=== PATIENT | male | born 1930 | race Two or more races ===

== ENCOUNTER 2017-03-30 05:31 | Inpatient (IN) | payer MEDICARE, MEDICAID ==
[~2017-03-30] VITALS: Ht 167.6 cm; Wt 82.4 kg
[2017-03-30] MEDS ORDERED: ASPirin 325 MG TAB PO ONE (07:30)
[2017-03-30] MEDS ORDERED: LORazepam 0.5 MG TAB PO ONE (07:30)
[2017-03-30] MEDS ORDERED: FUR20T (08:00)
[2017-03-30] MEDS ORDERED: AMLO10TA2 (08:00)
[2017-03-30] MEDS ORDERED: LEVO50TA7 (08:00)
[2017-03-30] MEDS ORDERED: SPIR25TA89 (08:00)
[2017-03-30] MEDS ORDERED: ASPI81CH59 PO (08:00)
[2017-03-30] MEDS ORDERED: ATOR40TA52 (08:00)
[2017-03-30] MEDS ORDERED: BENA20TA14 (08:00)
[2017-03-30] MEDS ORDERED: GLIP-115 (08:00)
[2017-03-30] MEDS ORDERED: TICA90TA (08:00)
[2017-03-30] MEDS ORDERED: PANT40T (08:00)
[2017-03-30 08:16] LABS: Basophils # (auto) 0 uL; Basophils % (auto) 0.2 % (0.0-2.0); Eosinophils # (auto) 0.1 uL; Eosinophils % (auto) 0.6 % (0.0-7.0); Hematocrit 27.2 % (41.0-53.0); Hemoglobin 9.1 g/dL (13.5-17.5); Lymphocytes # (auto) 0.6 uL; Lymphocytes % (auto) 4.6 % (10.0-50.0); Mean Corpuscular Hemoglobin 29.3 pg (28.0-32.0); Mean Corpuscular Hgb Conc. 33.5 g/dL (32.0-36.0); Mean Corpuscular Volume 87.3 fL (80.0-100.0); Monocytes # (auto) 0.5 uL; Monocytes % (auto) 3.9 % (0.0-12.0); Neutrophils # (auto) 11.6 uL; Neutrophils % (auto) 90.7 % (37.0-80.0); Platelet Count (auto) 230 10^3/uL (140-450); Red Blood Cells 3.12 10^6/uL (4.5-5.90); Red Cell Distribution Width 16.2 % (11.8-14.3); White Blood Cell 12.8 10^3/uL (4.4-10.8)
[2017-03-30 08:27] LABS: INR 1.14 (0.9-1.15); Partial Thromboplastin Time 28.6 sec (22.64-33.71); Prothrombin Time 12.4 sec (9.37-12.3)
[2017-03-30 08:34] LABS: BUN/Creatinine Ratio 25.4; Magnesium 2.1 mg/dL (1.6-2.6); Potassium 3.6 mmol/L (3.5-5.1)
[2017-03-30 08:48] LABS: Bilirubin, Total 4.1 mg/dL (0.2-1.0); Total Protein 6.6 g/dL (6.4-8.2)
[2017-03-30] MEDS ORDERED: ENOXAPARIN SOD 80 MG/0.8ML SYRINGE SC ONE (09:15)
[2017-03-30] MEDS ORDERED: FUROSEMIDE 20 MG/2 ML VIAL IV ONE (09:15)
[2017-03-30] MEDS ORDERED: PROMETHAZINE HCL 25 MG/ML 1ML IV PRN (09:30)
[2017-03-30] MEDS ORDERED: MORPHINE SULFATE 4 MG/ML SYR/VIAL IV PRN (09:30)
[2017-03-30] MEDS ORDERED: MORPHINE SULF INJ 2 MG/ML SYRINGE 1ML IV PRN ×2 (09:30)
[2017-03-30] MEDS ORDERED: OSELTAMIVIR 75 MG CAP PO ONE (09:30)
[2017-03-30] MEDS ORDERED: LORazepam 0.5 MG TAB PO PRN (09:30)
[2017-03-30] MEDS ORDERED: PIPERACILLIN-TAZOB 3.375GM 50 ML IV ONE (09:30)
[2017-03-30] MEDS: OSELTAMIVIR 30 MG CAP PO SCH ×2 (10:00→21:57)
[2017-03-30] MEDS ORDERED: PATIENTS OWN MEDICATION (Aspirin (Aspirin Low Dose) 1 TAB) PO SCH (10:00)
[2017-03-30] MEDS ORDERED: OSELTAMIVIR 75 MG CAP PO SCH (10:00)
[2017-03-30] MEDS: TICAGRELOR 90 MG TAB PO SCH ×2 (10:00→21:56)
[2017-03-30 10:25] VITALS: BP 154/70
[2017-03-30] MEDS: IPRATROPIUM BROM 0.5 MG/2.5ML INH SOL NEB SCH ×2 (11:11→19:12)
[2017-03-30] MEDS: ALBUTEROL SULF 2.5 MG/0.5ML(0.5%) NEB SOLN NEB SCH ×2 (11:11→19:12)
[2017-03-30] MEDS: ENOXAPARIN SOD 40 MG/0.4 ML SYRINGE SC SCH (11:28)
[2017-03-30] MEDS: POTASSIUM CHL 20 Meq TABLET PO SCH (11:29)
[2017-03-30] MEDS: ASPirin 81 mg TAB PO SCH (11:29)
[2017-03-30] MEDS: SPIRONOLACTONE 25 MG TAB PO SCH (11:29)
[2017-03-30] MEDS: FUROSEMIDE 40 MG/4 ML VIAL IV SCH ×2 (11:29→21:55)
[2017-03-30] MEDS: PANTOPRAZOLE 40 MG TAB PO SCH ×2 (11:29→21:55)
[2017-03-30] MEDS: LEVOTHYROXINE SODIUM 50 MCG TAB PO SCH (11:29)
[2017-03-30] MEDS: CARVEDILOL 3.125 MG TAB PO SCH ×2 (11:30→21:56)
[2017-03-30] MEDS: amLODIPine BESYLATE 5 MG TAB PO SCH (11:30)
[2017-03-30] MEDS: InsuLIN REG 1unit/0.01ml Soln (100units/ml) SC SCH ×3 (11:30→22:00)
[2017-03-30] MEDS: BENAZEPRIL HCL 10 MG TAB PO SCH ×3 (11:31→22:00)
[2017-03-30] MEDS: LINEZOLID 600MG/300ML 300 ML IV SCH ×2 (11:33→21:54)
[2017-03-30] MEDS: ACCU-CHEK COMFORT CURVE STRIP VI SCH ×3 (11:39→21:57)
[2017-03-30] MEDS: glipiZIDE 5 MG TAB PO SCH ×2 (11:39→22:16)
[2017-03-30] MEDS ORDERED: INFLUENZA QUAD 2017-2018 0.5 ML SYRG IM ONE (12:00)
[2017-03-30] MEDS: PIPERACILLIN-TAZOB 3.375GM 50 ML IV SCH ×2 (12:00→18:24)
[2017-03-30] MEDS: NITROGLYCERIN 0.2MG/HR TOPICAL PATCH TD SCH (12:37)
[2017-03-30 13:00] VITALS: BP 154/70
[2017-03-30 13:37] VITALS: BP 122/57
[2017-03-30] MEDS: AZITHROMYCIN 500MG/ 250ML 250 ML IV SCH (13:37)
[2017-03-30 15:33] VITALS: BP 122/57
[2017-03-30 17:00] VITALS: BP 119/49
[2017-03-30 22:00] VITALS: BP 122/58
[2017-03-31] MEDS: ALBUTEROL SULF 2.5 MG/0.5ML(0.5%) NEB SOLN NEB SCH ×4 (00:19→19:54)
[2017-03-31] MEDS: IPRATROPIUM BROM 0.5 MG/2.5ML INH SOL NEB SCH ×4 (00:19→19:54)
[2017-03-31] MEDS: PIPERACILLIN-TAZOB 3.375GM 50 ML IV SCH ×4 (00:39→18:00)
[2017-03-31 05:24] VITALS: BP 120/60
[2017-03-31 06:17] LABS: Basophils # (auto) 0 uL; Hematocrit 22.8 % (41.0-53.0); Lymphocytes # (auto) 0.5 uL; Monocytes # (auto) 0.5 uL; Platelet Count (auto) 184 10^3/uL (140-450); Red Blood Cells 2.62 10^6/uL (4.5-5.90); White Blood Cell 9.5 10^3/uL (4.4-10.8)
[2017-03-31 06:19] LABS: Basophils % (auto) 0.2 % (0.0-2.0); Eosinophils # (auto) 0.1 uL; Eosinophils % (auto) 1.5 % (0.0-7.0); Mean Corpuscular Hemoglobin 30.3 pg (28.0-32.0); Mean Corpuscular Hgb Conc. 34.9 g/dL (32.0-36.0); Mean Corpuscular Volume 86.9 fL (80.0-100.0); Monocytes % (auto) 5.4 % (0.0-12.0); Neutrophils # (auto) 8.4 uL; Neutrophils % (auto) 87.9 % (37.0-80.0); Red Cell Distribution Width 15.9 % (11.8-14.3)
[2017-03-31 06:42] LABS: Albumin 1.7 g/dL (3.4-5.0); BUN/Creatinine Ratio 22.9; Bilirubin, Total 5.2 mg/dL (0.2-1.0); Calcium 7.5 mg/dL (8.5-10.1); Total Protein 5.5 g/dL (6.4-8.2)
[2017-03-31] MEDS: ACCU-CHEK COMFORT CURVE STRIP VI SCH ×4 (06:54→22:02)
[2017-03-31] MEDS: InsuLIN REG 1unit/0.01ml Soln (100units/ml) SC SCH ×4 (06:54→22:13)
[2017-03-31 08:00] VITALS: BP 109/51
[2017-03-31 09:49] VITALS: BP 109/51
[2017-03-31] MEDS: OSELTAMIVIR 30 MG CAP PO SCH ×2 (10:00→22:00)
[2017-03-31] MEDS: NITROGLYCERIN 0.2MG/HR TOPICAL PATCH TD SCH (10:00)
[2017-03-31] MEDS: AZITHROMYCIN 500MG/ 250ML 250 ML IV SCH (10:43)
[2017-03-31] MEDS: FUROSEMIDE 40 MG/4 ML VIAL IV SCH ×2 (10:43→21:59)
[2017-03-31] MEDS: LINEZOLID 600MG/300ML 300 ML IV SCH ×2 (10:43→21:59)
[2017-03-31] MEDS: POTASSIUM CHL 20 Meq TABLET PO SCH ×2 (10:44→18:21)
[2017-03-31] MEDS: ASPirin 81 mg TAB PO SCH ×2 (10:44→18:21)
[2017-03-31] MEDS: PANTOPRAZOLE 40 MG TAB PO SCH ×2 (10:45→22:01)
[2017-03-31] MEDS: BENAZEPRIL HCL 10 MG TAB PO SCH ×2 (10:45→22:01)
[2017-03-31] MEDS: ENOXAPARIN SOD 40 MG/0.4 ML SYRINGE SC SCH (10:46)
[2017-03-31] MEDS: LEVOTHYROXINE SODIUM 50 MCG TAB PO SCH (10:46)
[2017-03-31] MEDS: TICAGRELOR 90 MG TAB PO SCH ×3 (10:47→22:00)
[2017-03-31] MEDS: CARVEDILOL 3.125 MG TAB PO SCH ×2 (10:48→22:01)
[2017-03-31] MEDS: glipiZIDE 5 MG TAB PO SCH ×2 (10:48→22:13)
[2017-03-31] MEDS: amLODIPine BESYLATE 5 MG TAB PO SCH (10:49)
[2017-03-31] MEDS: SPIRONOLACTONE 25 MG TAB PO SCH ×2 (11:01→18:21)
[2017-03-31 12:49] VITALS: BP 135/52
[2017-03-31 16:33] VITALS: BP 109/52
[2017-03-31 22:00] VITALS: BP_SYST 122; BP_SYST 129; BP_DIAS 65; BP_DIAS 74
[2017-04-01] MEDS: IPRATROPIUM BROM 0.5 MG/2.5ML INH SOL NEB SCH ×4 (01:19→18:00)
[2017-04-01] MEDS: ALBUTEROL SULF 2.5 MG/0.5ML(0.5%) NEB SOLN NEB SCH ×4 (01:19→18:00)
[2017-04-01] MEDS: PIPERACILLIN-TAZOB 3.375GM 50 ML IV SCH ×4 (01:47→18:32)
[2017-04-01 05:00] VITALS: BP 107/47
[2017-04-01] MEDS: InsuLIN REG 1unit/0.01ml Soln (100units/ml) SC SCH ×4 (06:22→22:00)
[2017-04-01] MEDS: ACCU-CHEK COMFORT CURVE STRIP VI SCH ×4 (06:23→22:23)
[2017-04-01 06:28] LABS: BUN/Creatinine Ratio 22.6; Calcium 7.1 mg/dL (8.5-10.1)
[2017-04-01 06:31] LABS: Potassium 2.9 mmol/L (3.5-5.1)
[2017-04-01] MEDS ORDERED: POTASSIUM CHL 20 Meq TABLET PO ONE (07:00)
[2017-04-01 08:00] VITALS: BP 94/47
[2017-04-01 09:00] VITALS: BP 94/47
[2017-04-01] MEDS: LINEZOLID 600MG/300ML 300 ML IV SCH ×2 (10:00→21:56)
[2017-04-01] MEDS: CARVEDILOL 3.125 MG TAB PO SCH ×2 (10:00→22:09)
[2017-04-01] MEDS: NITROGLYCERIN 0.2MG/HR TOPICAL PATCH TD SCH (10:00)
[2017-04-01] MEDS: BENAZEPRIL HCL 10 MG TAB PO SCH ×2 (10:00→22:08)
[2017-04-01] MEDS: amLODIPine BESYLATE 5 MG TAB PO SCH (10:00)
[2017-04-01] MEDS: glipiZIDE 5 MG TAB PO SCH ×2 (10:00→22:10)
[2017-04-01] MEDS: ENOXAPARIN SOD 40 MG/0.4 ML SYRINGE SC SCH (10:02)
[2017-04-01] MEDS: SPIRONOLACTONE 25 MG TAB PO SCH (10:02)
[2017-04-01] MEDS: POTASSIUM CHL 20 Meq TABLET PO SCH (10:02)
[2017-04-01] MEDS: PANTOPRAZOLE 40 MG TAB PO SCH ×2 (10:03→22:09)
[2017-04-01] MEDS: LEVOTHYROXINE SODIUM 50 MCG TAB PO SCH (10:03)
[2017-04-01] MEDS: ASPirin 81 mg TAB PO SCH (10:05)
[2017-04-01] MEDS: TICAGRELOR 90 MG TAB PO SCH ×2 (10:05→22:18)
[2017-04-01 13:00] VITALS: BP 114/49
[2017-04-01] MEDS: AZITHROMYCIN 500MG/ 250ML 250 ML IV SCH (15:12)
[2017-04-01 16:58] VITALS: BP 98/44
[2017-04-01] MEDS: FUROSEMIDE 40 MG/4 ML VIAL IV SCH ×2 (18:32→22:01)
[2017-04-01] MEDS: ACETAMINOPHEN 500 MG TAB PO PRN (19:01)
[2017-04-01] MEDS: ALBUTEROL SULF 2.5 MG/0.5ML(0.5%) NEB SOLN NEB PRN (21:48)
[2017-04-01 22:14] VITALS: BP 108/55
[2017-04-01] MEDS: TEMAZEPAM 15 MG CAP PO PRN (22:18)
[2017-04-02] VITALS (7 sets, daily range): BP systolic 105–133; BP diastolic 46–62
[2017-04-02] MEDS: MORPHINE SULFATE 4 MG/ML SYR/VIAL IV PRN (00:45)
[2017-04-02] MEDS: ALBUTEROL SULF 2.5 MG/0.5ML(0.5%) NEB SOLN NEB SCH ×4 (00:59→18:18)
[2017-04-02] MEDS: IPRATROPIUM BROM 0.5 MG/2.5ML INH SOL NEB SCH ×4 (00:59→18:18)
[2017-04-02] MEDS: PIPERACILLIN-TAZOB 3.375GM 50 ML IV SCH ×5 (00:59→23:55)
[2017-04-02] MEDS: InsuLIN REG 1unit/0.01ml Soln (100units/ml) SC SCH ×4 (06:36→22:00)
[2017-04-02] MEDS: ACCU-CHEK COMFORT CURVE STRIP VI SCH ×4 (06:37→22:00)
[2017-04-02] MEDS: NITROGLYCERIN 0.2MG/HR TOPICAL PATCH TD SCH (10:00)
[2017-04-02] MEDS: amLODIPine BESYLATE 5 MG TAB PO SCH (10:00)
[2017-04-02] MEDS: SPIRONOLACTONE 25 MG TAB PO SCH (10:00)
[2017-04-02] MEDS: CARVEDILOL 3.125 MG TAB PO SCH ×2 (10:00→22:29)
[2017-04-02] MEDS: FUROSEMIDE 40 MG/4 ML VIAL IV SCH ×2 (10:00→22:24)
[2017-04-02] MEDS: BENAZEPRIL HCL 10 MG TAB PO SCH ×3 (10:00→22:25)
[2017-04-02] MEDS: TICAGRELOR 90 MG TAB PO SCH ×2 (10:00→22:28)
[2017-04-02] MEDS: PANTOPRAZOLE 40 MG TAB PO SCH ×2 (11:51→22:28)
[2017-04-02] MEDS: POTASSIUM CHL 20 Meq TABLET PO SCH (11:51)
[2017-04-02] MEDS: glipiZIDE 5 MG TAB PO SCH ×2 (11:52→22:00)
[2017-04-02] MEDS: ENOXAPARIN SOD 40 MG/0.4 ML SYRINGE SC SCH (11:52)
[2017-04-02] MEDS: ASPirin 81 mg TAB PO SCH (11:52)
[2017-04-02] MEDS: LEVOTHYROXINE SODIUM 50 MCG TAB PO SCH (11:52)
[2017-04-02] MEDS: AZITHROMYCIN 500MG/ 250ML 250 ML IV SCH (11:53)
[2017-04-02] MEDS: LINEZOLID 600MG/300ML 300 ML IV SCH ×2 (11:53→22:24)
[2017-04-03] VITALS (10 sets, daily range): BP systolic 103–121; BP diastolic 43–52
[2017-04-03] MEDS: ALBUTEROL SULF 2.5 MG/0.5ML(0.5%) NEB SOLN NEB SCH ×4 (00:10→19:51)
[2017-04-03] MEDS: IPRATROPIUM BROM 0.5 MG/2.5ML INH SOL NEB SCH ×4 (00:10→19:51)
[2017-04-03] MEDS: PIPERACILLIN-TAZOB 3.375GM 50 ML IV SCH ×3 (05:52→18:00)
[2017-04-03] MEDS: ACCU-CHEK COMFORT CURVE STRIP VI SCH ×4 (06:35→22:00)
[2017-04-03] MEDS: InsuLIN REG 1unit/0.01ml Soln (100units/ml) SC SCH ×4 (06:35→22:00)
[2017-04-03] MEDS: AZITHROMYCIN 500MG/ 250ML 250 ML IV SCH (09:12)
[2017-04-03] MEDS: FUROSEMIDE 40 MG/4 ML VIAL IV SCH ×2 (09:12→22:11)
[2017-04-03] MEDS: LINEZOLID 600MG/300ML 300 ML IV SCH ×2 (09:13→22:11)
[2017-04-03] MEDS: LEVOTHYROXINE SODIUM 50 MCG TAB PO SCH (09:15)
[2017-04-03] MEDS: ENOXAPARIN SOD 40 MG/0.4 ML SYRINGE SC SCH (09:16)
[2017-04-03] MEDS: BENAZEPRIL HCL 10 MG TAB PO SCH ×2 (09:19→22:00)
[2017-04-03] MEDS: PANTOPRAZOLE 40 MG TAB PO SCH ×2 (09:19→22:12)
[2017-04-03] MEDS: SPIRONOLACTONE 25 MG TAB PO SCH (09:19)
[2017-04-03] MEDS: POTASSIUM CHL 20 Meq TABLET PO SCH (09:20)
[2017-04-03] MEDS: glipiZIDE 5 MG TAB PO SCH ×2 (09:20→22:00)
[2017-04-03] MEDS: CARVEDILOL 3.125 MG TAB PO SCH ×2 (09:21→22:00)
[2017-04-03] MEDS: amLODIPine BESYLATE 5 MG TAB PO SCH (09:23)
[2017-04-03] MEDS: ASPirin 81 mg TAB PO SCH (09:23)
[2017-04-03] MEDS: NITROGLYCERIN 0.2MG/HR TOPICAL PATCH TD SCH (09:24)
[2017-04-03] MEDS: ALBUTEROL SULF 2.5 MG/0.5ML(0.5%) NEB SOLN NEB PRN (10:15)
[2017-04-03] MEDS: TICAGRELOR 90 MG TAB PO SCH ×2 (10:34→22:16)
[2017-04-03 11:33] LABS: Basophils # (auto) 0 uL; Eosinophils # (auto) 0.2 uL; Hematocrit 18.2 % (41.0-53.0); Lymphocytes # (auto) 0.7 uL; Mean Corpuscular Hgb Conc. 35.2 g/dL (32.0-36.0); Monocytes # (auto) 0.4 uL; Neutrophils # (auto) 5.4 uL; White Blood Cell 6.7 10^3/uL (4.4-10.8)
[2017-04-03 11:34] LABS: Basophils % (auto) 0.5 % (0.0-2.0); Eosinophils % (auto) 2.9 % (0.0-7.0); Lymphocytes % (auto) 9.8 % (10.0-50.0); Mean Corpuscular Hemoglobin 30.9 pg (28.0-32.0); Mean Corpuscular Volume 87.9 fL (80.0-100.0); Monocytes % (auto) 5.5 % (0.0-12.0); Neutrophils % (auto) 81.3 % (37.0-80.0); Platelet Count (auto) 152 10^3/uL (140-450); Red Blood Cells 2.07 10^6/uL (4.5-5.90); Red Cell Distribution Width 16.6 % (11.8-14.3)
[2017-04-03 11:46] LABS: Hemoglobin 6.4 g/dL (13.5-17.5)
[2017-04-03 12:12] LABS: Albumin 1.6 g/dL (3.4-5.0); BUN/Creatinine Ratio 21.1; Bilirubin, Total 4.4 mg/dL (0.2-1.0); Calcium 7.2 mg/dL (8.5-10.1); Potassium 3.9 mmol/L (3.5-5.1); Total Protein 5.2 g/dL (6.4-8.2)
[2017-04-03] MEDS: MORPHINE SULFATE 4 MG/ML SYR/VIAL IV PRN (12:56)
[2017-04-03] MEDS: DEXTROSE (50%) 50ML SYRG IV PRN (19:16)
[2017-04-04] VITALS (8 sets, daily range): BP systolic 106–127; BP diastolic 41–59
[2017-04-04] MEDS: IPRATROPIUM BROM 0.5 MG/2.5ML INH SOL NEB SCH ×4 (00:20→19:44)
[2017-04-04] MEDS: ALBUTEROL SULF 2.5 MG/0.5ML(0.5%) NEB SOLN NEB SCH ×4 (00:20→19:44)
[2017-04-04] MEDS: MORPHINE SULFATE 4 MG/ML SYR/VIAL IV PRN (05:00)
[2017-04-04] MEDS: PIPERACILLIN-TAZOB 3.375GM 50 ML IV SCH ×4 (05:27→18:00)
[2017-04-04] MEDS: ACETAMINOPHEN 500 MG TAB PO PRN (05:54)
[2017-04-04] MEDS: ACCU-CHEK COMFORT CURVE STRIP VI SCH ×4 (06:06→22:00)
[2017-04-04] MEDS: InsuLIN REG 1unit/0.01ml Soln (100units/ml) SC SCH ×4 (06:06→22:54)
[2017-04-04 07:31] LABS: Basophils # (auto) 0.1 uL; Basophils % (auto) 0.9 % (0.0-2.0); Eosinophils # (auto) 0.2 uL; Eosinophils % (auto) 2.5 % (0.0-7.0); Hematocrit 24.8 % (41.0-53.0); Hemoglobin 8.7 g/dL (13.5-17.5); Lymphocytes % (auto) 11.2 % (10.0-50.0); Mean Corpuscular Hemoglobin 31.6 pg (28.0-32.0); Mean Corpuscular Hgb Conc. 35.2 g/dL (32.0-36.0); Mean Corpuscular Volume 89.8 fL (80.0-100.0); Monocytes # (auto) 0.5 uL; Monocytes % (auto) 5.6 % (0.0-12.0); Neutrophils # (auto) 7.3 uL; Neutrophils % (auto) 79.8 % (37.0-80.0); Platelet Count (auto) 161 10^3/uL (140-450); Red Blood Cells 2.76 10^6/uL (4.5-5.90); Red Cell Distribution Width 16.6 % (11.8-14.3); White Blood Cell 9.1 10^3/uL (4.4-10.8)
[2017-04-04 07:47] LABS: BUN/Creatinine Ratio 20.8; Calcium 7.5 mg/dL (8.5-10.1); Potassium 4.6 mmol/L (3.5-5.1)
[2017-04-04] MEDS: AZITHROMYCIN 500MG/ 250ML 250 ML IV SCH (09:42)
[2017-04-04] MEDS: FUROSEMIDE 40 MG/4 ML VIAL IV SCH ×2 (09:42→22:49)
[2017-04-04] MEDS: POTASSIUM CHL 20 Meq TABLET PO SCH (09:44)
[2017-04-04] MEDS: NITROGLYCERIN 0.2MG/HR TOPICAL PATCH TD SCH (09:44)
[2017-04-04] MEDS: ENOXAPARIN SOD 40 MG/0.4 ML SYRINGE SC SCH (09:44)
[2017-04-04] MEDS: LEVOTHYROXINE SODIUM 50 MCG TAB PO SCH (09:45)
[2017-04-04] MEDS: ASPirin 81 mg TAB PO SCH (09:45)
[2017-04-04] MEDS: SPIRONOLACTONE 25 MG TAB PO SCH (09:45)
[2017-04-04] MEDS: PANTOPRAZOLE 40 MG TAB PO SCH ×2 (09:45→22:53)
[2017-04-04] MEDS: CARVEDILOL 3.125 MG TAB PO SCH ×2 (09:46→22:51)
[2017-04-04] MEDS: TICAGRELOR 90 MG TAB PO SCH ×2 (09:46→23:17)
[2017-04-04] MEDS: amLODIPine BESYLATE 5 MG TAB PO SCH (09:47)
[2017-04-04] MEDS: LINEZOLID 600MG/300ML 300 ML IV SCH ×2 (09:47→22:41)
[2017-04-04] MEDS: glipiZIDE 5 MG TAB PO SCH ×2 (09:47→22:52)
[2017-04-04] MEDS: BENAZEPRIL HCL 10 MG TAB PO SCH ×2 (09:47→22:53)
[2017-04-05] MEDS: ALBUTEROL SULF 2.5 MG/0.5ML(0.5%) NEB SOLN NEB SCH ×3 (00:17→19:39)
[2017-04-05] MEDS: IPRATROPIUM BROM 0.5 MG/2.5ML INH SOL NEB SCH ×3 (00:17→19:39)
[2017-04-05] MEDS: PIPERACILLIN-TAZOB 3.375GM 50 ML IV SCH ×4 (00:19→18:15)
[2017-04-05] MEDS: MORPHINE SULFATE 4 MG/ML SYR/VIAL IV PRN (01:00)
[2017-04-05] MEDS: ALBUTEROL SULF 2.5 MG/0.5ML(0.5%) NEB SOLN NEB PRN (03:21)
[2017-04-05 05:15] VITALS: BP 91/45
[2017-04-05] MEDS ORDERED: SODIUM CHLORIDE 0.9 % NEB SOLN 3ML NEB ONE (05:50)
[2017-04-05] MEDS: ACCU-CHEK COMFORT CURVE STRIP VI SCH ×4 (06:21→21:58)
[2017-04-05] MEDS: InsuLIN REG 1unit/0.01ml Soln (100units/ml) SC SCH ×4 (06:21→21:58)
[2017-04-05 08:23] VITALS: BP 91/45
[2017-04-05 09:00] VITALS: BP 111/46
[2017-04-05 09:34] LABS: Basophils # (auto) 0 uL; Eosinophils # (auto) 0.1 uL; Lymphocytes # (auto) 0.7 uL; Neutrophils % (auto) 84.2 % (37.0-80.0); Platelet Count (auto) 141 10^3/uL (140-450)
[2017-04-05 09:36] LABS: Basophils % (auto) 0.2 % (0.0-2.0); Eosinophils % (auto) 1.7 % (0.0-7.0); Hematocrit 21.7 % (41.0-53.0); Hemoglobin 7.5 g/dL (13.5-17.5); Lymphocytes % (auto) 8.4 % (10.0-50.0); Mean Corpuscular Hemoglobin 31.3 pg (28.0-32.0); Mean Corpuscular Hgb Conc. 34.7 g/dL (32.0-36.0); Mean Corpuscular Volume 90.3 fL (80.0-100.0); Monocytes # (auto) 0.4 uL; Monocytes % (auto) 5.5 % (0.0-12.0); Neutrophils # (auto) 6.5 uL; Red Blood Cells 2.41 10^6/uL (4.5-5.90); Red Cell Distribution Width 16.3 % (11.8-14.3); White Blood Cell 7.8 10^3/uL (4.4-10.8)
[2017-04-05] MEDS ORDERED: MORPHINE SULFATE 10 MG/ML INJ 1ML SDV IV PRN ×3 (09:45)
[2017-04-05] MEDS: ENOXAPARIN SOD 40 MG/0.4 ML SYRINGE SC SCH (10:00)
[2017-04-05] MEDS: CARVEDILOL 3.125 MG TAB PO SCH ×2 (10:00→21:56)
[2017-04-05] MEDS: BENAZEPRIL HCL 10 MG TAB PO SCH ×2 (10:00→21:58)
[2017-04-05] MEDS: amLODIPine BESYLATE 5 MG TAB PO SCH (10:00)
[2017-04-05] MEDS: glipiZIDE 5 MG TAB PO SCH ×2 (10:00→21:57)
[2017-04-05] MEDS: NITROGLYCERIN 0.2MG/HR TOPICAL PATCH TD SCH (10:00)
[2017-04-05 10:12] LABS: BUN/Creatinine Ratio 23.1; Calcium 7.4 mg/dL (8.5-10.1); Potassium 4.5 mmol/L (3.5-5.1)
[2017-04-05] MEDS: SPIRONOLACTONE 25 MG TAB PO SCH (10:26)
[2017-04-05] MEDS: ASPirin 81 mg TAB PO SCH (10:26)
[2017-04-05] MEDS: FUROSEMIDE 40 MG/4 ML VIAL IV SCH ×2 (10:26→21:54)
[2017-04-05] MEDS: TICAGRELOR 90 MG TAB PO SCH ×2 (10:26→21:55)
[2017-04-05] MEDS: LINEZOLID 600MG/300ML 300 ML IV SCH ×2 (10:26→21:54)
[2017-04-05] MEDS: PANTOPRAZOLE 40 MG TAB PO SCH ×2 (10:27→21:58)
[2017-04-05] MEDS: POTASSIUM CHL 20 Meq TABLET PO SCH (10:27)
[2017-04-05] MEDS: LEVOTHYROXINE SODIUM 50 MCG TAB PO SCH (10:28)
[2017-04-05] MEDS: AZITHROMYCIN 250 MG TAB PO SCH (10:28)
[2017-04-05 12:50] VITALS: BP 109/42
[2017-04-05 17:00] VITALS: BP 105/55
[2017-04-05 20:27] LABS: Basophils # (auto) 0 uL; Basophils % (auto) 0.3 % (0.0-2.0); Eosinophils # (auto) 0.1 uL; Lymphocytes # (auto) 0.6 uL; Monocytes # (auto) 0.4 uL
[2017-04-05 20:31] LABS: Hematocrit 20.4 % (41.0-53.0); Hemoglobin 7.2 g/dL (13.5-17.5); Mean Corpuscular Hgb Conc. 35.4 g/dL (32.0-36.0); Mean Corpuscular Volume 90.4 fL (80.0-100.0); Red Blood Cells 2.26 10^6/uL (4.5-5.90)
[2017-04-05 20:32] LABS: Eosinophils % (auto) 1.7 % (0.0-7.0); Lymphocytes % (auto) 8.6 % (10.0-50.0); Neutrophils # (auto) 6.2 uL; Neutrophils % (auto) 84.4 % (37.0-80.0); Platelet Count (auto) 132 10^3/uL (140-450); Red Cell Distribution Width 16.2 % (11.8-14.3); White Blood Cell 7.4 10^3/uL (4.4-10.8)
[2017-04-05 21:05] LABS: Albumin 1.6 g/dL (3.4-5.0); BUN/Creatinine Ratio 22.8; Bilirubin, Total 5.9 mg/dL (0.2-1.0); Calcium 7.2 mg/dL (8.5-10.1); Potassium 4.5 mmol/L (3.5-5.1); Total Protein 5.3 g/dL (6.4-8.2)
[2017-04-05] MEDS: DOCUSATE SOD 100 MG CAP PO SCH (21:56)
[2017-04-05 22:00] VITALS: BP 112/48
[2017-04-06] MEDS: PIPERACILLIN-TAZOB 3.375GM 50 ML IV SCH ×3 (00:13→11:54)
[2017-04-06] MEDS: ALBUTEROL SULF 2.5 MG/0.5ML(0.5%) NEB SOLN NEB SCH ×4 (01:13→19:20)
[2017-04-06 05:00] VITALS: BP 111/48
[2017-04-06] MEDS: IPRATROPIUM BROM 0.5 MG/2.5ML INH SOL NEB SCH ×3 (06:09→19:20)
[2017-04-06] MEDS: InsuLIN REG 1unit/0.01ml Soln (100units/ml) SC SCH ×4 (06:31→22:00)
[2017-04-06] MEDS: ACCU-CHEK COMFORT CURVE STRIP VI SCH ×7 (06:32→23:01)
[2017-04-06] MEDS: DEXTROSE (50%) 50ML SYRG IV PRN (07:00)
[2017-04-06] MEDS ORDERED: DEXTROSE (50%) 50ML SYRG IV PRN (07:00)
[2017-04-06 09:00] VITALS: BP 110/47
[2017-04-06] MEDS: NITROGLYCERIN 0.2MG/HR TOPICAL PATCH TD SCH (10:00)
[2017-04-06] MEDS: FUROSEMIDE 40 MG/4 ML VIAL IV SCH ×2 (10:08→22:44)
[2017-04-06] MEDS: ASPirin 81 mg TAB PO SCH (10:09)
[2017-04-06] MEDS: LINEZOLID 600MG/300ML 300 ML IV SCH (10:09)
[2017-04-06] MEDS: TICAGRELOR 90 MG TAB PO SCH ×2 (10:09→22:45)
[2017-04-06] MEDS: SPIRONOLACTONE 25 MG TAB PO SCH (10:09)
[2017-04-06] MEDS: POTASSIUM CHL 20 Meq TABLET PO SCH (10:10)
[2017-04-06] MEDS: DOCUSATE SOD 100 MG CAP PO SCH ×2 (10:10→22:45)
[2017-04-06] MEDS: CARVEDILOL 3.125 MG TAB PO SCH ×2 (10:10→22:00)
[2017-04-06] MEDS: amLODIPine BESYLATE 5 MG TAB PO SCH (10:11)
[2017-04-06] MEDS: BENAZEPRIL HCL 10 MG TAB PO SCH ×2 (10:11→22:00)
[2017-04-06] MEDS: PANTOPRAZOLE 40 MG TAB PO SCH ×2 (10:12→22:46)
[2017-04-06] MEDS: LEVOTHYROXINE SODIUM 50 MCG TAB PO SCH (10:12)
[2017-04-06] MEDS: AZITHROMYCIN 250 MG TAB PO SCH (10:12)
[2017-04-06] MEDS: ENOXAPARIN SOD 40 MG/0.4 ML SYRINGE SC SCH (10:12)
[2017-04-06 13:04] VITALS: BP 116/74
[2017-04-06] MEDS ORDERED: LEVOFLOXACIN 500 MG TAB PO ONE (15:15)
[2017-04-06 17:00] VITALS: BP 120/47
[2017-04-06 17:53] LABS: Basophils # (auto) 0 uL; Basophils % (auto) 0.4 % (0.0-2.0); Eosinophils # (auto) 0.1 uL; Eosinophils % (auto) 2.4 % (0.0-7.0); Lymphocytes # (auto) 0.7 uL; Lymphocytes % (auto) 12.3 % (10.0-50.0); Mean Corpuscular Hemoglobin 32.1 pg (28.0-32.0); Mean Corpuscular Hgb Conc. 35.1 g/dL (32.0-36.0); Mean Corpuscular Volume 91.6 fL (80.0-100.0); Monocytes # (auto) 0.4 uL; Monocytes % (auto) 6.2 % (0.0-12.0); Neutrophils # (auto) 4.5 uL; Neutrophils % (auto) 78.7 % (37.0-80.0); Platelet Count (auto) 127 10^3/uL (140-450); Red Blood Cells 2.18 10^6/uL (4.5-5.90); Red Cell Distribution Width 16.3 % (11.8-14.3); White Blood Cell 5.7 10^3/uL (4.4-10.8)
[2017-04-06 18:11] LABS: Albumin 1.6 g/dL (3.4-5.0); BUN/Creatinine Ratio 24.4; Calcium 7.5 mg/dL (8.5-10.1); Potassium 4.2 mmol/L (3.5-5.1)
[2017-04-06 18:14] LABS: Bilirubin, Total 3.7 mg/dL (0.2-1.0); Total Protein 5.4 g/dL (6.4-8.2)
[2017-04-06] MEDS: Boost Glucose Control 8 Ounces PO SCH ×2 (20:37→22:50)
[2017-04-06 22:00] VITALS: BP 110/39
[2017-04-06] MEDS: MEGESTROL ACET 400MG/10ML ORAL SUSP GT SCH (22:45)
[2017-04-06] MEDS: TEMAZEPAM 15 MG CAP PO PRN (22:46)
[2017-04-06] MEDS: ACETAMINOPHEN 500 MG TAB PO PRN (23:00)
[2017-04-07] VITALS (10 sets, daily range): BP systolic 115–139; BP diastolic 44–64
[2017-04-07] MEDS: ALBUTEROL SULF 2.5 MG/0.5ML(0.5%) NEB SOLN NEB SCH ×4 (01:00→18:47)
[2017-04-07] MEDS: IPRATROPIUM BROM 0.5 MG/2.5ML INH SOL NEB SCH ×4 (01:00→18:47)
[2017-04-07 09:01] LABS: Basophils # (auto) 0 uL; Basophils % (auto) 0.6 % (0.0-2.0); Eosinophils # (auto) 0.1 uL; Monocytes # (auto) 0.4 uL
[2017-04-07 09:03] LABS: Eosinophils % (auto) 2.2 % (0.0-7.0); Hematocrit 20.1 % (41.0-53.0); Lymphocytes # (auto) 0.7 uL; Lymphocytes % (auto) 11.3 % (10.0-50.0); Mean Corpuscular Hemoglobin 31.6 pg (28.0-32.0); Mean Corpuscular Hgb Conc. 34.6 g/dL (32.0-36.0); Mean Corpuscular Volume 91.4 fL (80.0-100.0); Monocytes % (auto) 5.7 % (0.0-12.0); Neutrophils % (auto) 80.2 % (37.0-80.0); Platelet Count (auto) 121 10^3/uL (140-450); White Blood Cell 6.3 10^3/uL (4.4-10.8)
[2017-04-07] MEDS: InsuLIN REG 1unit/0.01ml Soln (100units/ml) SC SCH ×4 (09:35→22:00)
[2017-04-07 09:43] LABS: Albumin 1.7 g/dL (3.4-5.0); BUN/Creatinine Ratio 25.2; Bilirubin, Total 6.3 mg/dL (0.2-1.0); Calcium 7.6 mg/dL (8.5-10.1); Potassium 3.9 mmol/L (3.5-5.1); Total Protein 5.5 g/dL (6.4-8.2)
[2017-04-07] MEDS: NITROGLYCERIN 0.4 MG SL TAB SL PRN ×2 (10:05→11:40)
[2017-04-07] MEDS ORDERED: NALOXONE HCL 0.4 MG/ML VIAL ONE (10:11)
[2017-04-07] MEDS ORDERED: ONDANSETRON HCL 4 MG/2 ML VIAL ONE (10:16)
[2017-04-07] MEDS ORDERED: ONDANSETRON HCL 4 MG/2 ML VIAL IV ONE (10:45)
[2017-04-07] MEDS ORDERED: NALOXONE HCL 0.4 MG/ML VIAL IV ONE (10:45)
[2017-04-07 11:12] LABS: Hepatitis B Surface Antibody Negative
[2017-04-07 11:22] LABS: Hepatitis B Surface Antigen Negative (Negative)
[2017-04-07] MEDS: BENAZEPRIL HCL 10 MG TAB PO SCH ×2 (11:45→22:00)
[2017-04-07 11:46] LABS: Hepatitis C Antibody Negative (Negative)
[2017-04-07 11:48] LABS: Hepatitis A Total Antibody Positive; Hepatitis B Core Total AB Negative
[2017-04-07] MEDS: ACCU-CHEK COMFORT CURVE STRIP VI SCH ×4 (12:33→22:00)
[2017-04-07] MEDS: Boost Glucose Control 8 Ounces PO SCH ×4 (12:33→22:00)
[2017-04-07] MEDS: ENOXAPARIN SOD 40 MG/0.4 ML SYRINGE SC SCH (12:41)
[2017-04-07] MEDS: MEGESTROL ACET 400MG/10ML ORAL SUSP GT SCH ×2 (12:59→22:18)
[2017-04-07] MEDS: NITROGLYCERIN 0.2MG/HR TOPICAL PATCH TD SCH (13:04)
[2017-04-07] MEDS: ASPirin 81 mg TAB PO SCH (13:42)
[2017-04-07] MEDS: LEVOFLOXACIN 250 MG TAB PO SCH (13:43)
[2017-04-07] MEDS: DOCUSATE SOD 100 MG CAP PO SCH ×2 (13:43→22:06)
[2017-04-07] MEDS: POTASSIUM CHL 20 Meq TABLET PO SCH (13:43)
[2017-04-07] MEDS: SPIRONOLACTONE 25 MG TAB PO SCH (13:43)
[2017-04-07] MEDS: TICAGRELOR 90 MG TAB PO SCH ×2 (13:43→22:07)
[2017-04-07] MEDS: LEVOTHYROXINE SODIUM 50 MCG TAB PO SCH (13:43)
[2017-04-07] MEDS: ACETAMINOPHEN 500 MG TAB PO PRN (13:44)
[2017-04-07] MEDS: PANTOPRAZOLE 40 MG TAB PO SCH ×2 (13:44→22:03)
[2017-04-07] MEDS: CARVEDILOL 3.125 MG TAB PO SCH ×2 (13:44→22:03)
[2017-04-07] MEDS: amLODIPine BESYLATE 5 MG TAB PO SCH (13:45)
[2017-04-07] MEDS ORDERED: NITROGLYCERIN 50MG/250ML 250 ML IV SCH (18:45)
[2017-04-07] MEDS: FUROSEMIDE 40 MG/4 ML VIAL IV SCH ×2 (20:03→21:49)
[2017-04-07] MEDS: TEMAZEPAM 15 MG CAP PO PRN (22:06)
[2017-04-08] VITALS (7 sets, daily range): BP systolic 112–132; BP diastolic 40–56
[2017-04-08] MEDS: IPRATROPIUM BROM 0.5 MG/2.5ML INH SOL NEB SCH ×4 (00:17→19:29)
[2017-04-08] MEDS: ALBUTEROL SULF 2.5 MG/0.5ML(0.5%) NEB SOLN NEB SCH ×4 (00:17→19:29)
[2017-04-08] MEDS: Boost Glucose Control 8 Ounces PO SCH ×2 (06:00→12:00)
[2017-04-08] MEDS: ACCU-CHEK COMFORT CURVE STRIP VI SCH ×2 (07:00→11:30)
[2017-04-08] MEDS: InsuLIN REG 1unit/0.01ml Soln (100units/ml) SC SCH ×2 (07:00→11:30)
[2017-04-08 09:09] LABS: Basophils # (auto) 0 uL; Basophils % (auto) 0.5 % (0.0-2.0); Eosinophils # (auto) 0.1 uL; Hematocrit 24.5 % (41.0-53.0); Hemoglobin 8.6 g/dL (13.5-17.5); Lymphocytes # (auto) 0.5 uL; Lymphocytes % (auto) 6.6 % (10.0-50.0); Mean Corpuscular Volume 91.7 fL (80.0-100.0); Monocytes # (auto) 0.4 uL; Monocytes % (auto) 5.1 % (0.0-12.0); Neutrophils # (auto) 6.9 uL; Neutrophils % (auto) 86.8 % (37.0-80.0); Nucleated Red Blood Cells % 0.1 %; Platelet Count (auto) 139 10^3/uL (140-450); Red Blood Cells 2.68 10^6/uL (4.5-5.90); Red Cell Distribution Width 15.8 % (11.8-14.3); White Blood Cell 7.9 10^3/uL (4.4-10.8)
[2017-04-08 09:27] LABS: Albumin 1.9 g/dL (3.4-5.0); BUN/Creatinine Ratio 28.7; Calcium 8.2 mg/dL (8.5-10.1); Potassium 4.5 mmol/L (3.5-5.1)
[2017-04-08 09:29] LABS: Total Protein 6.1 g/dL (6.4-8.2)
[2017-04-08] MEDS: amLODIPine BESYLATE 5 MG TAB PO SCH (10:00)
[2017-04-08] MEDS: FUROSEMIDE 40 MG/4 ML VIAL IV SCH (10:02)
[2017-04-08] MEDS: NITROGLYCERIN 0.2MG/HR TOPICAL PATCH TD SCH (10:02)
[2017-04-08] MEDS: ENOXAPARIN SOD 40 MG/0.4 ML SYRINGE SC SCH (10:03)
[2017-04-08] MEDS: ASPirin 81 mg TAB PO SCH (10:03)
[2017-04-08] MEDS: MEGESTROL ACET 400MG/10ML ORAL SUSP GT SCH (10:03)
[2017-04-08] MEDS: TICAGRELOR 90 MG TAB PO SCH (10:04)
[2017-04-08] MEDS: SPIRONOLACTONE 25 MG TAB PO SCH (10:04)
[2017-04-08] MEDS: DOCUSATE SOD 100 MG CAP PO SCH (10:04)
[2017-04-08] MEDS: LEVOTHYROXINE SODIUM 50 MCG TAB PO SCH (10:04)
[2017-04-08] MEDS: PANTOPRAZOLE 40 MG TAB PO SCH ×2 (10:04→21:33)
[2017-04-08] MEDS: POTASSIUM CHL 20 Meq TABLET PO SCH (10:05)
[2017-04-08] MEDS: CARVEDILOL 3.125 MG TAB PO SCH ×2 (10:05→21:32)
[2017-04-08] MEDS: LEVOFLOXACIN 250 MG TAB PO SCH (10:05)
[2017-04-08] MEDS: BENAZEPRIL HCL 10 MG TAB PO SCH ×2 (10:18→21:33)
[2017-04-08 12:50] LABS: Bilirubin, Total 10.5 mg/dL (0.2-1.0)
[2017-07-06] MEDS ORDERED: CARV3.1240 PO (12:59)
[2017-07-06] MEDS ORDERED: BENA10TA9 PO (12:59)
[2017-07-06] MEDS ORDERED: POTA20TA53 PO (12:59)
== END 2017-04-09 00:20 | disposition short-term general hospital (02) | DRG 291 ==
LOC: EDBD 05:31 → ER 05:37 → EDSEX 05:37 → TELE 05:38 → TELE-EAST 10:28 → DOU IN ICU 04-07 14:47
PROVIDERS: ADMIT Internal Medicine; ATTEND Internal Medicine
PROC: 30233N1 Transfusion of Nonautologous Red Blood Cells into Peripheral Vein, Percutaneous Approach (ICD-10-PCS; principal; 2017-04-03)
DX: I13.0 Hypertensive heart and chronic kidney disease with heart failure and stage 1 through stage 4 chronic kidney disease, or unspecified chronic kidney disease (principal); J96.90 Respiratory failure, unspecified, unspecified whether with hypoxia or hypercapnia; K83.1 Obstruction of bile duct; I50.43 Acute on chronic combined systolic (congestive) and diastolic (congestive) heart failure; K92.2 Gastrointestinal hemorrhage, unspecified; E11.22 Type 2 diabetes mellitus with diabetic chronic kidney disease; I48.91 Unspecified atrial fibrillation; N18.9 Chronic kidney disease, unspecified; Z95.5 Presence of coronary angioplasty implant and graft; I25.10 Atherosclerotic heart disease of native coronary artery without angina pectoris; E03.9 Hypothyroidism, unspecified; K76.9 Liver disease, unspecified; I50.9 Heart failure, unspecified; D50.0 Iron deficiency anemia secondary to blood loss (chronic); I25.2 Old myocardial infarction; Z79.82 Long term (current) use of aspirin; Z23 Encounter for immunization
CPT/HCPCS: 36415; 71010; 71020; 71045; 76705; 80048; 80053; 80061; 82105; 82550; 82728; 82962; 83036; 83605; 83735; 83880; 84443; 84484; 85025; 85610; 85730; 86301; 86704; 86706; 86708; 86803; 86850; 86900; 86901; 86920; 86922; 87040; 87081; 87086; 87340; 87400; 93005; 93306; 94640; 94761; 96372; 96374; 96375; 97116; 97163; 97530; G9035; J1815; J2405; J2543

== ENCOUNTER 2017-04-23 08:50 | Inpatient (IN) | payer MEDICAID, MEDICARE ==
[~2017-04-23] VITALS: Ht 167.6 cm; Wt 73.0 kg
[~2017-04-23 08:50] MED LIST: AMLO10TA2; ASPI81CH59 PO; ATOR40TA52; BENA20TA14; FUR20T; GLIP-115; LEVO50TA7; PANT40T; SPIR25TA89; TICA90TA
[2017-04-23] MEDS ORDERED: FUROSEMIDE 40 MG/4 ML VIAL IV ONE (09:30)
[2017-04-23 10:13] LABS: Basophils # (auto) 0.1 uL; Basophils % (auto) 0.8 % (0.0-2.0); Eosinophils # (auto) 0.2 uL; Hematocrit 27.6 % (41.0-53.0); Hemoglobin 9.2 g/dL (13.5-17.5); Lymphocytes # (auto) 0.7 uL; Lymphocytes % (auto) 7.2 % (10.0-50.0); Mean Corpuscular Hemoglobin 30.2 pg (28.0-32.0); Mean Corpuscular Hgb Conc. 33.4 g/dL (32.0-36.0); Mean Corpuscular Volume 90.6 fL (80.0-100.0); Monocytes # (auto) 0.7 uL; Monocytes % (auto) 7.3 % (0.0-12.0); Neutrophils # (auto) 7.9 uL; Neutrophils % (auto) 82.7 % (37.0-80.0); Platelet Count (auto) 223 10^3/uL (140-450); Red Blood Cells 3.05 10^6/uL (4.5-5.90); Red Cell Distribution Width 19.8 % (11.8-14.3); White Blood Cell 9.5 10^3/uL (4.4-10.8)
[2017-04-23 10:41] LABS: Albumin 2.4 g/dL (3.4-5.0); BUN/Creatinine Ratio 19.5; Bilirubin, Total 2.2 mg/dL (0.2-1.0); Calcium 8.1 mg/dL (8.5-10.1); Potassium 4.1 mmol/L (3.5-5.1); Total Protein 7.2 g/dL (6.4-8.2)
[2017-04-23] MEDS ORDERED: LORazepam 0.5 MG TAB PO PRN (12:15)
[2017-04-23] MEDS ORDERED: BENAZEPRIL HCL 10 MG TAB PO ONE (12:15)
[2017-04-23] MEDS ORDERED: ACETAMINOPHEN 500 MG TAB PO PRN (12:15)
[2017-04-23] MEDS ORDERED: HYDROmorphone HCL 2 MG/ML VL IV PRN (12:15)
[2017-04-23] MEDS ORDERED: NITROGLYCERIN 0.4 MG SL TAB SL PRN (12:15)
[2017-04-23] MEDS ORDERED: HYDROcodone-ACET 5/325MG TAB PO PRN (12:15)
[2017-04-23] MEDS ORDERED: PROMETHAZINE HCL 25 MG/ML 1ML IV PRN (12:15)
[2017-04-23] MEDS ORDERED: LACTULOSE 20Gm/30ML SOLN PO PRN (12:15)
[2017-04-23] MEDS ORDERED: DEXTROSE (50%) 50ML SYRG IV PRN (12:15)
[2017-04-23 16:16] LABS: Free T3 1.51 pg/mL (2.3-4.2); Free T4 (Free Thyroxine) 0.82 ng/dL (0.89-1.76)
[2017-04-23] MEDS: InsuLIN REG 1unit/0.01ml Soln (100units/ml) SC SCH ×2 (17:52→22:00)
[2017-04-23] MEDS: ACCU-CHEK COMFORT CURVE STRIP VI SCH ×2 (17:52→22:00)
[2017-04-23 18:40] VITALS: BP 143/71
[2017-04-23] MEDS: FUROSEMIDE 40 MG/4 ML VIAL IV SCH (18:47)
[2017-04-23 22:00] VITALS: BP 128/79
[2017-04-23] MEDS: ENOXAPARIN SOD 80 MG/0.8ML SYRINGE SC SCH (22:00)
[2017-04-23] MEDS: PANTOPRAZOLE 40 MG TAB PO SCH (22:00)
[2017-04-23] MEDS: TICAGRELOR 90 MG TAB PO SCH (22:00)
[2017-04-23] MEDS: ATORVASTATIN 20 MG TAB PO SCH (22:00)
[2017-04-23] MEDS: CARVEDILOL 3.125 MG TAB PO SCH (22:00)
[2017-04-23 23:42] VITALS: BP 128/79
[2017-04-24 05:32] VITALS: BP 115/51
[2017-04-24] MEDS: LEVOTHYROXINE SODIUM 50 MCG TAB PO SCH (06:18)
[2017-04-24] MEDS: FUROSEMIDE 40 MG/4 ML VIAL IV SCH ×2 (06:18→18:09)
[2017-04-24] MEDS: InsuLIN REG 1unit/0.01ml Soln (100units/ml) SC SCH ×4 (06:58→22:00)
[2017-04-24] MEDS: ACCU-CHEK COMFORT CURVE STRIP VI SCH ×4 (06:58→22:00)
[2017-04-24 07:49] LABS: Basophils # (auto) 0 uL; Basophils % (auto) 0.7 % (0.0-2.0); Eosinophils # (auto) 0.1 uL; Lymphocytes # (auto) 0.7 uL; Monocytes # (auto) 0.6 uL; Neutrophils # (auto) 4.9 uL
[2017-04-24 07:52] LABS: Eosinophils % (auto) 1.9 % (0.0-7.0); Hematocrit 24.3 % (41.0-53.0); Hemoglobin 8.3 g/dL (13.5-17.5); Mean Corpuscular Hemoglobin 31.2 pg (28.0-32.0); Mean Corpuscular Hgb Conc. 34.1 g/dL (32.0-36.0); Mean Corpuscular Volume 91.5 fL (80.0-100.0); Monocytes % (auto) 9.5 % (0.0-12.0); Neutrophils % (auto) 76.9 % (37.0-80.0); Platelet Count (auto) 187 10^3/uL (140-450); Red Blood Cells 2.65 10^6/uL (4.5-5.90); White Blood Cell 6.4 10^3/uL (4.4-10.8)
[2017-04-24 07:59] LABS: Red Cell Distribution Width 20.8 % (11.8-14.3)
[2017-04-24 08:18] LABS: BUN/Creatinine Ratio 21.3; Bilirubin, Total 1.8 mg/dL (0.2-1.0); Potassium 3.9 mmol/L (3.5-5.1); Total Protein 6.2 g/dL (6.4-8.2)
[2017-04-24 09:00] VITALS: BP 116/47
[2017-04-24] MEDS: PANTOPRAZOLE 40 MG TAB PO SCH ×2 (09:41→22:24)
[2017-04-24] MEDS: POTASSIUM CHL 20 Meq TABLET PO SCH (09:41)
[2017-04-24] MEDS: TICAGRELOR 90 MG TAB PO SCH ×2 (09:41→22:26)
[2017-04-24] MEDS: SPIRONOLACTONE 25 MG TAB PO SCH (09:41)
[2017-04-24] MEDS: ENOXAPARIN SOD 80 MG/0.8ML SYRINGE SC SCH (09:42)
[2017-04-24] MEDS: CARVEDILOL 3.125 MG TAB PO SCH ×2 (09:43→22:26)
[2017-04-24] MEDS: ASPirin 81 mg TAB PO SCH (09:44)
[2017-04-24] MEDS ORDERED: PATIENTS OWN MEDICATION (Aspirin (Aspirin Low Dose) 1 TAB) PO SCH (10:00)
[2017-04-24] MEDS: NITROGLYCERIN 0.2MG/HR TOPICAL PATCH TD SCH (10:00)
[2017-04-24] MEDS: BENAZEPRIL HCL 10 MG TAB PO SCH (10:00)
[2017-04-24] MEDS ORDERED: amLODIPine BESYLATE 5 MG TAB PO SCH (10:00)
[2017-04-24 13:00] VITALS: BP 134/54
[2017-04-24 13:17] LABS: Urine Bacteria NONE SEEN /hpf (None Seen); Urine Blood Negative /uL (Negative); Urine Hyaline Cast MOD /lpf (0 - 2); Urine Specific Gravity 1.008 (1.001-1.035); Urine WBC <1 /hpf (0 - 3)
[2017-04-24 17:00] VITALS: BP 119/46
[2017-04-24 22:00] VITALS: BP 143/53
[2017-04-24] MEDS: ATORVASTATIN 20 MG TAB PO SCH (22:25)
[2017-04-25 05:57] VITALS: BP 119/80
[2017-04-25] MEDS: FUROSEMIDE 40 MG/4 ML VIAL IV SCH ×2 (06:00→18:17)
[2017-04-25] MEDS: InsuLIN REG 1unit/0.01ml Soln (100units/ml) SC SCH ×4 (06:44→21:32)
[2017-04-25] MEDS: ACCU-CHEK COMFORT CURVE STRIP VI SCH ×4 (06:44→21:30)
[2017-04-25] MEDS: LEVOTHYROXINE SODIUM 50 MCG TAB PO SCH (06:53)
[2017-04-25 07:54] LABS: BUN/Creatinine Ratio 26.4; Calcium 8.2 mg/dL (8.5-10.1); Potassium 3.6 mmol/L (3.5-5.1)
[2017-04-25 09:00] VITALS: BP 141/49
[2017-04-25] MEDS: ASPirin 81 mg TAB PO SCH (09:54)
[2017-04-25] MEDS: LORazepam 0.5 MG TAB PO PRN ×2 (09:54→21:30)
[2017-04-25] MEDS: TICAGRELOR 90 MG TAB PO SCH ×2 (09:54→21:28)
[2017-04-25] MEDS: PANTOPRAZOLE 40 MG TAB PO SCH ×2 (09:54→21:29)
[2017-04-25] MEDS: SPIRONOLACTONE 25 MG TAB PO SCH (09:54)
[2017-04-25] MEDS: POTASSIUM CHL 20 Meq TABLET PO SCH (09:54)
[2017-04-25] MEDS: CARVEDILOL 3.125 MG TAB PO SCH ×2 (09:55→21:29)
[2017-04-25] MEDS: BENAZEPRIL HCL 10 MG TAB PO SCH (09:55)
[2017-04-25] MEDS: NITROGLYCERIN 0.2MG/HR TOPICAL PATCH TD SCH (09:56)
[2017-04-25 13:00] VITALS: BP 148/56
[2017-04-25] MEDS ORDERED: METOLAZONE 5 MG TAB PO ONE (15:45)
[2017-04-25 17:42] VITALS: BP 119/55
[2017-04-25] MEDS: ASCORBIC ACID 500 MG TAB PO SCH (21:29)
[2017-04-25] MEDS: ATORVASTATIN 20 MG TAB PO SCH (21:29)
[2017-04-25 21:33] VITALS: BP 142/54
[2017-04-26 05:47] VITALS: BP 127/52
[2017-04-26] MEDS: FUROSEMIDE 40 MG/4 ML VIAL IV SCH ×2 (05:47→18:05)
[2017-04-26] MEDS: InsuLIN REG 1unit/0.01ml Soln (100units/ml) SC SCH ×4 (05:47→21:54)
[2017-04-26] MEDS: LEVOTHYROXINE SODIUM 50 MCG TAB PO SCH (05:47)
[2017-04-26] MEDS: ACCU-CHEK COMFORT CURVE STRIP VI SCH ×4 (05:48→21:50)
[2017-04-26 06:58] LABS: BUN/Creatinine Ratio 24.6; Calcium 8.3 mg/dL (8.5-10.1); Magnesium 1.7 mg/dL (1.6-2.6); Potassium 3.5 mmol/L (3.5-5.1)
[2017-04-26 07:12] LABS: Basophils # (auto) 0 uL; Basophils % (auto) 0.7 % (0.0-2.0); Eosinophils # (auto) 0.2 uL; Eosinophils % (auto) 4.9 % (0.0-7.0); Hemoglobin 7.6 g/dL (13.5-17.5); Lymphocytes # (auto) 0.9 uL; Lymphocytes % (auto) 18.2 % (10.0-50.0); Mean Corpuscular Hemoglobin 31.1 pg (28.0-32.0); Mean Corpuscular Hgb Conc. 34.6 g/dL (32.0-36.0); Monocytes # (auto) 0.6 uL; Monocytes % (auto) 12.3 % (0.0-12.0); Neutrophils # (auto) 3.1 uL; Neutrophils % (auto) 63.9 % (37.0-80.0); Nucleated Red Blood Cells % 0.1 %; Platelet Count (auto) 162 10^3/uL (140-450); Red Blood Cells 2.44 10^6/uL (4.5-5.90); Red Cell Distribution Width 19.5 % (11.8-14.3); White Blood Cell 4.8 10^3/uL (4.4-10.8)
[2017-04-26 09:00] VITALS: BP 135/61
[2017-04-26] MEDS: POTASSIUM CHL 20 Meq TABLET PO SCH (10:44)
[2017-04-26] MEDS: PANTOPRAZOLE 40 MG TAB PO SCH ×2 (10:44→21:49)
[2017-04-26] MEDS: ASCORBIC ACID 500 MG TAB PO SCH ×2 (10:44→21:50)
[2017-04-26] MEDS: TICAGRELOR 90 MG TAB PO SCH ×2 (10:44→21:48)
[2017-04-26] MEDS: ASPirin 81 mg TAB PO SCH (10:44)
[2017-04-26] MEDS: SPIRONOLACTONE 25 MG TAB PO SCH (10:44)
[2017-04-26] MEDS: MULTIPLE VITAMINS W/ MINERALS TAB PO SCH (10:44)
[2017-04-26] MEDS: BENAZEPRIL HCL 10 MG TAB PO SCH (10:45)
[2017-04-26] MEDS: METOLAZONE 5 MG TAB PO SCH (10:45)
[2017-04-26] MEDS: CARVEDILOL 3.125 MG TAB PO SCH ×2 (10:47→21:49)
[2017-04-26 13:00] VITALS: BP 121/46
[2017-04-26] MEDS ORDERED: MAGNESIUM SULFATE 1GM/100ML 100 ML IV ONE (13:30)
[2017-04-26 15:45] LABS: % Iron Saturation 24.6 % (20-55)
[2017-04-26 17:00] VITALS: BP 131/40
[2017-04-26 21:30] VITALS: BP 136/60
[2017-04-26] MEDS: ATORVASTATIN 20 MG TAB PO SCH (21:49)
[2017-04-26] MEDS: TEMAZEPAM 15 MG CAP PO PRN (21:51)
[2017-04-27 05:00] VITALS: BP 121/53
[2017-04-27] MEDS: FUROSEMIDE 40 MG/4 ML VIAL IV SCH ×2 (06:14→17:58)
[2017-04-27] MEDS: LEVOTHYROXINE SODIUM 50 MCG TAB PO SCH (06:14)
[2017-04-27] MEDS: InsuLIN REG 1unit/0.01ml Soln (100units/ml) SC SCH ×4 (06:26→21:37)
[2017-04-27] MEDS: ACCU-CHEK COMFORT CURVE STRIP VI SCH ×4 (06:27→21:37)
[2017-04-27 07:53] LABS: Basophils # (auto) 0 uL; Basophils % (auto) 0.8 % (0.0-2.0); Eosinophils # (auto) 0.2 uL; Eosinophils % (auto) 5.7 % (0.0-7.0); Hematocrit 25.7 % (41.0-53.0); Hemoglobin 8.6 g/dL (13.5-17.5); Lymphocytes # (auto) 0.9 uL; Lymphocytes % (auto) 23.2 % (10.0-50.0); Mean Corpuscular Hemoglobin 30.3 pg (28.0-32.0); Mean Corpuscular Hgb Conc. 33.3 g/dL (32.0-36.0); Mean Corpuscular Volume 90.9 fL (80.0-100.0); Monocytes # (auto) 0.4 uL; Monocytes % (auto) 9.5 % (0.0-12.0); Neutrophils # (auto) 2.3 uL; Neutrophils % (auto) 60.8 % (37.0-80.0); Platelet Count (auto) 168 10^3/uL (140-450); Red Blood Cells 2.83 10^6/uL (4.5-5.90); Red Cell Distribution Width 19.6 % (11.8-14.3); White Blood Cell 3.8 10^3/uL (4.4-10.8)
[2017-04-27 08:11] LABS: Calcium 8.3 mg/dL (8.5-10.1); Magnesium 1.9 mg/dL (1.6-2.6); Potassium 3.5 mmol/L (3.5-5.1)
[2017-04-27 09:00] VITALS: BP 149/65
[2017-04-27] MEDS: TICAGRELOR 90 MG TAB PO SCH ×2 (10:00→21:36)
[2017-04-27] MEDS: METOLAZONE 5 MG TAB PO SCH (10:28)
[2017-04-27] MEDS: SPIRONOLACTONE 25 MG TAB PO SCH (10:29)
[2017-04-27] MEDS: ASPirin 81 mg TAB PO SCH (10:29)
[2017-04-27] MEDS: MULTIPLE VITAMINS W/ MINERALS TAB PO SCH (10:29)
[2017-04-27] MEDS: POTASSIUM CHL 20 Meq TABLET PO SCH (10:30)
[2017-04-27] MEDS: ASCORBIC ACID 500 MG TAB PO SCH ×2 (10:31→21:37)
[2017-04-27] MEDS: CARVEDILOL 3.125 MG TAB PO SCH ×2 (10:31→21:37)
[2017-04-27] MEDS: BENAZEPRIL HCL 10 MG TAB PO SCH (10:31)
[2017-04-27] MEDS: PANTOPRAZOLE 40 MG TAB PO SCH ×2 (10:32→21:37)
[2017-04-27 13:00] VITALS: BP 107/54
[2017-04-27 17:00] VITALS: BP 133/57
[2017-04-27] MEDS: TEMAZEPAM 15 MG CAP PO PRN (21:37)
[2017-04-27] MEDS: ATORVASTATIN 20 MG TAB PO SCH (21:37)
[2017-04-27 22:00] VITALS: BP 124/51
[2017-04-28] MEDS: LEVOTHYROXINE SODIUM 50 MCG TAB PO SCH (06:02)
[2017-04-28] MEDS: FUROSEMIDE 40 MG/4 ML VIAL IV SCH ×2 (06:02→17:44)
[2017-04-28] MEDS: ACCU-CHEK COMFORT CURVE STRIP VI SCH ×4 (06:03→21:45)
[2017-04-28] MEDS: InsuLIN REG 1unit/0.01ml Soln (100units/ml) SC SCH ×4 (06:03→21:46)
[2017-04-28 06:06] VITALS: BP 114/50
[2017-04-28 09:00] VITALS: BP 135/61
[2017-04-28] MEDS: ASCORBIC ACID 500 MG TAB PO SCH ×2 (10:25→21:45)
[2017-04-28] MEDS: ASPirin 81 mg TAB PO SCH (10:26)
[2017-04-28] MEDS: CARVEDILOL 3.125 MG TAB PO SCH ×2 (10:42→21:44)
[2017-04-28] MEDS: METOLAZONE 5 MG TAB PO SCH (10:45)
[2017-04-28] MEDS: BENAZEPRIL HCL 10 MG TAB PO SCH (10:46)
[2017-04-28] MEDS: SPIRONOLACTONE 25 MG TAB PO SCH (10:56)
[2017-04-28] MEDS: PANTOPRAZOLE 40 MG TAB PO SCH ×2 (10:57→21:45)
[2017-04-28] MEDS: MULTIPLE VITAMINS W/ MINERALS TAB PO SCH (10:57)
[2017-04-28] MEDS: POTASSIUM CHL 20 Meq TABLET PO SCH (10:57)
[2017-04-28] MEDS: TICAGRELOR 90 MG TAB PO SCH ×2 (10:58→21:44)
[2017-04-28 13:00] VITALS: BP 126/60
[2017-04-28 17:00] VITALS: BP 127/71
[2017-04-28] MEDS: ATORVASTATIN 20 MG TAB PO SCH (21:44)
[2017-04-28] MEDS: TEMAZEPAM 15 MG CAP PO PRN (21:45)
[2017-04-28 22:00] VITALS: BP 125/53
[2017-04-29] MEDS: FUROSEMIDE 40 MG/4 ML VIAL IV SCH ×2 (05:39→18:16)
[2017-04-29 05:48] VITALS: BP 122/51
[2017-04-29] MEDS: LEVOTHYROXINE SODIUM 50 MCG TAB PO SCH (06:20)
[2017-04-29] MEDS: ACCU-CHEK COMFORT CURVE STRIP VI SCH ×3 (06:22→17:00)
[2017-04-29] MEDS: InsuLIN REG 1unit/0.01ml Soln (100units/ml) SC SCH ×3 (06:22→17:00)
[2017-04-29 09:00] VITALS: BP 124/40
[2017-04-29] MEDS: TICAGRELOR 90 MG TAB PO SCH (09:42)
[2017-04-29] MEDS: METOLAZONE 5 MG TAB PO SCH (10:00)
[2017-04-29] MEDS: BENAZEPRIL HCL 10 MG TAB PO SCH (10:00)
[2017-04-29] MEDS: MULTIPLE VITAMINS W/ MINERALS TAB PO SCH (10:08)
[2017-04-29] MEDS: POTASSIUM CHL 20 Meq TABLET PO SCH (10:08)
[2017-04-29] MEDS: PANTOPRAZOLE 40 MG TAB PO SCH (10:08)
[2017-04-29] MEDS: ASCORBIC ACID 500 MG TAB PO SCH (10:08)
[2017-04-29] MEDS: ASPirin 81 mg TAB PO SCH (10:08)
[2017-04-29] MEDS: SPIRONOLACTONE 25 MG TAB PO SCH (10:08)
[2017-04-29] MEDS: CARVEDILOL 3.125 MG TAB PO SCH (10:38)
[2017-04-29 13:00] VITALS: BP 129/42
[2017-04-29 17:00] VITALS: BP 127/41
[2017-04-29 19:49] VITALS: BP 127/41
[2017-07-06] MEDS ORDERED: BENA10TA9 PO (12:59)
[2017-07-06] MEDS ORDERED: CARV3.1240 PO (12:59)
[2017-07-06] MEDS ORDERED: POTA20TA53 PO (12:59)
== END 2017-04-29 20:28 | disposition home health service (06) | DRG 291 ==
LOC: ER 08:50 → EDBD 08:50 → TELE 08:51 → TELE-WESTW 18:13
PROVIDERS: ADMIT Internal Medicine; ATTEND Internal Medicine
DX: I13.0 Hypertensive heart and chronic kidney disease with heart failure and stage 1 through stage 4 chronic kidney disease, or unspecified chronic kidney disease (principal); I50.43 Acute on chronic combined systolic (congestive) and diastolic (congestive) heart failure; E44.0 Moderate protein-calorie malnutrition; E11.22 Type 2 diabetes mellitus with diabetic chronic kidney disease; I48.91 Unspecified atrial fibrillation; D63.8 Anemia in other chronic diseases classified elsewhere; E11.9 Type 2 diabetes mellitus without complications; E03.9 Hypothyroidism, unspecified; I25.5 Ischemic cardiomyopathy; F41.9 Anxiety disorder, unspecified; I25.10 Atherosclerotic heart disease of native coronary artery without angina pectoris; N18.2 Chronic kidney disease, stage 2 (mild); J44.9 Chronic obstructive pulmonary disease, unspecified; K59.00 Constipation, unspecified; G47.00 Insomnia, unspecified; I25.2 Old myocardial infarction; Z95.5 Presence of coronary angioplasty implant and graft; Z90.49 Acquired absence of other specified parts of digestive tract; Z88.5 Allergy status to narcotic agent; Z79.4 Long term (current) use of insulin; Z79.899 Other long term (current) drug therapy; Z68.26 Body mass index [BMI] 26.0-26.9, adult
CPT/HCPCS: 36415; 71045; 80048; 80053; 81001; 82550; 82962; 83036; 83540; 83550; 83605; 83735; 83880; 84439; 84443; 84481; 84484; 85025; 87040; 87081; 93005; 94761; 96374; 97116; 97163; 97530; J1815

== ENCOUNTER 2017-12-24 14:05 | Inpatient (IN) | payer MEDICARE, MEDICAID ==
[~2017-12-24] VITALS: Ht 172.7 cm; Wt 74.3 kg
[~2017-12-24 14:05] MED LIST changes: +AMLO10TA12; -AMLO10TA2; +BENA10TA9 PO; -BENA20TA14; +CARV3.1240 PO; +POTA20TA53 PO; +SPIR25TA8; -SPIR25TA89
[2017-12-24 14:39] LABS: Basophils # (auto) 0 uL; Basophils % (auto) 0.6 % (0.0-2.0); Eosinophils # (auto) 0.2 uL; Eosinophils % (auto) 2.8 % (0.0-7.0); Hematocrit 30.8 % (41.0-53.0); Hemoglobin 10.3 g/dL (13.5-17.5); Lymphocytes # (auto) 0.6 uL; Lymphocytes % (auto) 8.2 % (10.0-50.0); Mean Corpuscular Hemoglobin 30.2 pg (28.0-32.0); Mean Corpuscular Hgb Conc. 33.3 g/dL (32.0-36.0); Mean Corpuscular Volume 90.7 fL (80.0-100.0); Monocytes # (auto) 0.4 uL; Monocytes % (auto) 5.9 % (0.0-12.0); Neutrophils # (auto) 5.6 uL; Neutrophils % (auto) 82.5 % (37.0-80.0); Platelet Count (auto) 222 10^3/uL (140-450); Red Cell Distribution Width 15.9 % (11.8-14.3); White Blood Cell 6.8 10^3/uL (4.4-10.8)
[2017-12-24 14:57] LABS: INR 1.11 (0.9-1.15); Partial Thromboplastin Time 26.8 sec (23.78-33.04); Prothrombin Time 11.8 sec (9.27-12.13)
[2017-12-24 15:15] LABS: Albumin 3.3 g/dL (3.4-5.0); BUN/Creatinine Ratio 21.2; Bilirubin, Total 0.7 mg/dL (0.2-1.0); Calcium 8.4 mg/dL (8.5-10.1); Magnesium 2.7 mg/dL (1.6-2.6); Potassium 4.3 mmol/L (3.5-5.1); Total Protein 8.5 g/dL (6.4-8.2)
[2017-12-24] MEDS ORDERED: FUROSEMIDE 40 MG/4 ML VIAL IV ONE (15:30)
[2017-12-24] MEDS ORDERED: LORazepam 0.5 MG TAB PO PRN (15:45)
[2017-12-24] MEDS ORDERED: ACETAMINOPHEN 500 MG TAB PO PRN (15:45)
[2017-12-24] MEDS ORDERED: HYDROcodone-ACET 5/325MG TAB PO PRN (15:45)
[2017-12-24] MEDS ORDERED: DEXTROSE (50%) 50ML SYRG IV PRN (15:45)
[2017-12-24] MEDS ORDERED: LACTULOSE 20Gm/30ML SOLN PO PRN (15:45)
[2017-12-24] MEDS ORDERED: PROMETHAZINE HCL 25 MG/ML 1ML IV PRN (15:45)
[2017-12-24] MEDS ORDERED: NITROGLYCERIN 0.4 MG SL TAB SL PRN (15:45)
[2017-12-24 18:00] VITALS: BP 148/74
[2017-12-24] MEDS: glipiZIDE 5 MG TAB PO SCH (18:17)
[2017-12-24] MEDS: FUROSEMIDE 40 MG/4 ML VIAL IV SCH (18:17)
[2017-12-24] MEDS: InsuLIN REG 1unit/0.01ml Soln (100units/ml) SC SCH ×2 (18:23→21:59)
[2017-12-24] MEDS: ACCU-CHEK COMFORT CURVE STRIP VI SCH ×2 (18:23→21:45)
[2017-12-24 21:35] VITALS: BP 126/63
[2017-12-24] MEDS: TICAGRELOR 90 MG TAB PO SCH ×2 (21:43→21:58)
[2017-12-24] MEDS: SODIUM CHLOR 0.9% PF (SALINE LOCK) 10ML VIAL/SYR IV SCH (21:43)
[2017-12-24] MEDS: CARVEDILOL 3.125 MG TAB PO SCH (21:44)
[2017-12-24] MEDS: PANTOPRAZOLE 40 MG TAB PO SCH (21:44)
[2017-12-24] MEDS: ATORVASTATIN 20 MG TAB PO SCH (21:44)
[2017-12-25] MEDS: TEMAZEPAM 15 MG CAP PO PRN (01:08)
[2017-12-25 05:00] VITALS: BP 101/43
[2017-12-25] MEDS: SODIUM CHLOR 0.9% PF (SALINE LOCK) 10ML VIAL/SYR IV SCH ×3 (05:38→21:30)
[2017-12-25] MEDS: FUROSEMIDE 40 MG/4 ML VIAL IV SCH ×2 (05:38→17:27)
[2017-12-25] MEDS: ACCU-CHEK COMFORT CURVE STRIP VI SCH ×4 (06:37→21:32)
[2017-12-25] MEDS: InsuLIN REG 1unit/0.01ml Soln (100units/ml) SC SCH ×4 (06:38→21:43)
[2017-12-25] MEDS: glipiZIDE 5 MG TAB PO SCH ×2 (06:38→17:27)
[2017-12-25 06:43] LABS: Basophils # (auto) 0 uL; Basophils % (auto) 0.4 % (0.0-2.0); Eosinophils # (auto) 0.5 uL; Eosinophils % (auto) 8.1 % (0.0-7.0); Hematocrit 25.9 % (41.0-53.0); Hemoglobin 8.8 g/dL (13.5-17.5); Lymphocytes # (auto) 0.9 uL; Lymphocytes % (auto) 15.2 % (10.0-50.0); Mean Corpuscular Hemoglobin 30.4 pg (28.0-32.0); Mean Corpuscular Volume 89.3 fL (80.0-100.0); Monocytes # (auto) 0.7 uL; Monocytes % (auto) 10.7 % (0.0-12.0); Neutrophils % (auto) 65.6 % (37.0-80.0); Platelet Count (auto) 182 10^3/uL (140-450); Red Cell Distribution Width 15.6 % (11.8-14.3); White Blood Cell 6.1 10^3/uL (4.4-10.8)
[2017-12-25 07:08] LABS: Albumin 2.5 g/dL (3.4-5.0); BUN/Creatinine Ratio 24.4; Bilirubin, Total 0.6 mg/dL (0.2-1.0); Calcium 8.3 mg/dL (8.5-10.1); Potassium 4.1 mmol/L (3.5-5.1); Total Protein 6.5 g/dL (6.4-8.2)
[2017-12-25 09:00] VITALS: BP 118/49
[2017-12-25] MEDS ORDERED: PATIENTS OWN MEDICATION (Aspirin (Aspirin Low Dose) 1 TAB) PO SCH (10:00)
[2017-12-25] MEDS: CARVEDILOL 3.125 MG TAB PO SCH ×2 (10:00→21:30)
[2017-12-25] MEDS: PANTOPRAZOLE 40 MG TAB PO SCH ×2 (10:42→21:32)
[2017-12-25] MEDS: TICAGRELOR 90 MG TAB PO SCH ×2 (10:42→21:43)
[2017-12-25] MEDS: ASPirin 81 mg TAB PO SCH (10:42)
[2017-12-25] MEDS: LEVOTHYROXINE SODIUM 50 MCG TAB PO SCH (10:42)
[2017-12-25] MEDS: ENOXAPARIN SOD 30 MG/0.3 ML SYRINGE SC SCH (10:43)
[2017-12-25] MEDS: BENAZEPRIL HCL 10 MG TAB PO SCH (10:52)
[2017-12-25] MEDS: amLODIPine BESYLATE 5 MG TAB PO SCH (10:53)
[2017-12-25] MEDS: NITROGLYCERIN 0.2MG/HR TOPICAL PATCH TD SCH (10:54)
[2017-12-25 13:00] VITALS: BP 106/39
[2017-12-25 17:00] VITALS: BP 121/65
[2017-12-25 20:12] LABS: Protein, Urine 21.3 mg/dL (0.0-11.9)
[2017-12-25] MEDS: ATORVASTATIN 20 MG TAB PO SCH (21:32)
[2017-12-25 22:00] VITALS: BP 130/56
[2017-12-25 22:37] LABS: Urine Bacteria FEW /hpf (None Seen); Urine Blood Negative /uL (Negative); Urine Hyaline Cast MOD /lpf (0 - 2); Urine Specific Gravity 1.014 (1.001-1.035); Urine WBC 1 /hpf (0 - 3)
[2017-12-26] MEDS: TEMAZEPAM 15 MG CAP PO PRN ×2 (00:01→21:52)
[2017-12-26 05:00] VITALS: BP 123/58
[2017-12-26] MEDS: glipiZIDE 5 MG TAB PO SCH ×2 (06:14→17:39)
[2017-12-26] MEDS: SODIUM CHLOR 0.9% PF (SALINE LOCK) 10ML VIAL/SYR IV SCH ×3 (06:14→21:42)
[2017-12-26] MEDS: FUROSEMIDE 40 MG/4 ML VIAL IV SCH ×2 (06:14→17:39)
[2017-12-26] MEDS: ACCU-CHEK COMFORT CURVE STRIP VI SCH ×4 (06:15→21:48)
[2017-12-26] MEDS: InsuLIN REG 1unit/0.01ml Soln (100units/ml) SC SCH ×4 (06:15→21:49)
[2017-12-26 09:00] VITALS: BP 120/47
[2017-12-26] MEDS: CARVEDILOL 3.125 MG TAB PO SCH ×2 (10:00→21:43)
[2017-12-26] MEDS: ASPirin 81 mg TAB PO SCH (10:27)
[2017-12-26] MEDS: TICAGRELOR 90 MG TAB PO SCH ×2 (10:28→21:42)
[2017-12-26] MEDS: amLODIPine BESYLATE 5 MG TAB PO SCH (10:29)
[2017-12-26] MEDS: BENAZEPRIL HCL 10 MG TAB PO SCH (10:29)
[2017-12-26] MEDS: PANTOPRAZOLE 40 MG TAB PO SCH ×2 (10:30→21:41)
[2017-12-26] MEDS: LEVOTHYROXINE SODIUM 50 MCG TAB PO SCH (10:31)
[2017-12-26] MEDS: ENOXAPARIN SOD 30 MG/0.3 ML SYRINGE SC SCH (10:31)
[2017-12-26] MEDS: NITROGLYCERIN 0.2MG/HR TOPICAL PATCH TD SCH (10:32)
[2017-12-26 13:00] VITALS: BP 125/46
[2017-12-26 17:00] VITALS: BP 118/71
[2017-12-26] MEDS: ATORVASTATIN 20 MG TAB PO SCH (21:41)
[2017-12-26 22:00] VITALS: BP 133/58
[2017-12-27 05:06] VITALS: BP 116/47
[2017-12-27] MEDS: SODIUM CHLOR 0.9% PF (SALINE LOCK) 10ML VIAL/SYR IV SCH ×3 (06:18→21:37)
[2017-12-27] MEDS: FUROSEMIDE 40 MG/4 ML VIAL IV SCH (06:18)
[2017-12-27] MEDS: InsuLIN REG 1unit/0.01ml Soln (100units/ml) SC SCH ×4 (06:28→22:00)
[2017-12-27] MEDS: ACCU-CHEK COMFORT CURVE STRIP VI SCH ×4 (06:28→22:13)
[2017-12-27] MEDS: glipiZIDE 5 MG TAB PO SCH ×2 (06:29→17:22)
[2017-12-27 06:48] LABS: Basophils # (auto) 0 uL; Basophils % (auto) 0.1 % (0.0-2.0); Eosinophils # (auto) 0 uL; Eosinophils % (auto) 0.1 % (0.0-7.0); Hematocrit 29.2 % (41.0-53.0); Hemoglobin 9.9 g/dL (13.5-17.5); Lymphocytes # (auto) 0.2 uL; Mean Corpuscular Hemoglobin 30.6 pg (28.0-32.0); Mean Corpuscular Hgb Conc. 33.9 g/dL (32.0-36.0); Mean Corpuscular Volume 90.4 fL (80.0-100.0); Monocytes # (auto) 0.7 uL; Monocytes % (auto) 6.6 % (0.0-12.0); Neutrophils # (auto) 9.6 uL; Neutrophils % (auto) 91.2 % (37.0-80.0); Platelet Count (auto) 219 10^3/uL (140-450); Red Blood Cells 3.23 10^6/uL (4.5-5.90); Red Cell Distribution Width 15.8 % (11.8-14.3); White Blood Cell 10.6 10^3/uL (4.4-10.8)
[2017-12-27 07:09] LABS: Albumin 2.8 g/dL (3.4-5.0); BUN/Creatinine Ratio 23.9; Calcium 8.7 mg/dL (8.5-10.1); Potassium 4.4 mmol/L (3.5-5.1); Total Protein 7.5 g/dL (6.4-8.2)
[2017-12-27 09:00] VITALS: BP 121/49
[2017-12-27] MEDS: BENAZEPRIL HCL 10 MG TAB PO SCH (09:40)
[2017-12-27] MEDS: PANTOPRAZOLE 40 MG TAB PO SCH ×2 (09:41→21:38)
[2017-12-27] MEDS: ENOXAPARIN SOD 30 MG/0.3 ML SYRINGE SC SCH (09:41)
[2017-12-27] MEDS: TICAGRELOR 90 MG TAB PO SCH ×2 (09:41→21:40)
[2017-12-27] MEDS: ASPirin 81 mg TAB PO SCH (09:41)
[2017-12-27] MEDS: LEVOTHYROXINE SODIUM 50 MCG TAB PO SCH (09:41)
[2017-12-27] MEDS: NITROGLYCERIN 0.2MG/HR TOPICAL PATCH TD SCH (09:41)
[2017-12-27] MEDS: amLODIPine BESYLATE 5 MG TAB PO SCH (09:42)
[2017-12-27] MEDS: CARVEDILOL 3.125 MG TAB PO SCH ×2 (10:00→21:42)
[2017-12-27 13:00] VITALS: BP 106/39
[2017-12-27 17:00] VITALS: BP 103/43
[2017-12-27] MEDS: ATORVASTATIN 20 MG TAB PO SCH (21:38)
[2017-12-27 22:35] VITALS: BP 101/50
[2017-12-28 05:00] VITALS: BP 104/44
[2017-12-28] MEDS: SODIUM CHLOR 0.9% PF (SALINE LOCK) 10ML VIAL/SYR IV SCH ×3 (05:49→21:16)
[2017-12-28] MEDS ORDERED: FUROSEMIDE 20 MG/2 ML VIAL IV SCH (06:00)
[2017-12-28] MEDS: glipiZIDE 5 MG TAB PO SCH ×2 (06:14→18:05)
[2017-12-28] MEDS: InsuLIN REG 1unit/0.01ml Soln (100units/ml) SC SCH ×4 (06:14→21:13)
[2017-12-28] MEDS: ACCU-CHEK COMFORT CURVE STRIP VI SCH ×4 (06:15→21:13)
[2017-12-28] MEDS ORDERED: ADENOSINE 63 MG in GIVE UN-DILUTED 0 ML IV STA (08:23)
[2017-12-28 08:31] VITALS: BP 105/41
[2017-12-28] MEDS: NITROGLYCERIN 0.2MG/HR TOPICAL PATCH TD SCH (10:00)
[2017-12-28] MEDS: CARVEDILOL 3.125 MG TAB PO SCH ×2 (10:00→20:07)
[2017-12-28 10:38] LABS: Hepatitis B Surface Antibody Negative
[2017-12-28 10:56] VITALS: BP 109/38
[2017-12-28 11:52] LABS: Hepatitis C Antibody Negative (Negative)
[2017-12-28 11:57] LABS: Hepatitis A Total Antibody Positive
[2017-12-28 12:03] LABS: Hepatitis B Surface Antigen Negative (Negative)
[2017-12-28 12:20] LABS: Hepatitis B Core Total AB Negative
[2017-12-28 12:44] VITALS: BP 106/52
[2017-12-28] MEDS: ENOXAPARIN SOD 30 MG/0.3 ML SYRINGE SC SCH (13:34)
[2017-12-28] MEDS: PANTOPRAZOLE 40 MG TAB PO SCH ×2 (13:34→21:10)
[2017-12-28] MEDS: ASPirin 81 mg TAB PO SCH (13:34)
[2017-12-28] MEDS: LEVOTHYROXINE SODIUM 50 MCG TAB PO SCH (13:34)
[2017-12-28 16:29] VITALS: BP 122/46
[2017-12-28] MEDS: TICAGRELOR 90 MG TAB PO SCH ×2 (18:01→21:16)
[2017-12-28] MEDS: amLODIPine BESYLATE 5 MG TAB PO SCH (20:08)
[2017-12-28] MEDS: ATORVASTATIN 20 MG TAB PO SCH (21:10)
[2017-12-28] MEDS: TEMAZEPAM 15 MG CAP PO PRN (21:10)
[2017-12-28 22:02] VITALS: BP 118/42
[2017-12-29] MEDS: ACCU-CHEK COMFORT CURVE STRIP VI SCH ×3 (04:51→17:00)
[2017-12-29] MEDS: SODIUM CHLOR 0.9% PF (SALINE LOCK) 10ML VIAL/SYR IV SCH ×2 (04:51→14:00)
[2017-12-29] MEDS: glipiZIDE 5 MG TAB PO SCH (04:51)
[2017-12-29] MEDS: InsuLIN REG 1unit/0.01ml Soln (100units/ml) SC SCH ×3 (04:51→17:00)
[2017-12-29 05:00] VITALS: BP 113/48
[2017-12-29] MEDS: LEVOTHYROXINE SODIUM 50 MCG TAB PO SCH (08:29)
[2017-12-29 09:00] VITALS: BP 113/67
[2017-12-29] MEDS: CARVEDILOL 3.125 MG TAB PO SCH (10:00)
[2017-12-29] MEDS: amLODIPine BESYLATE 5 MG TAB PO SCH (10:00)
[2017-12-29] MEDS ORDERED: FUROSEMIDE 20 MG/2 ML VIAL IV SCH (10:00)
[2017-12-29] MEDS: NITROGLYCERIN 0.2MG/HR TOPICAL PATCH TD SCH (10:00)
[2017-12-29] MEDS: ENOXAPARIN SOD 30 MG/0.3 ML SYRINGE SC SCH (10:56)
[2017-12-29] MEDS: PANTOPRAZOLE 40 MG TAB PO SCH (10:57)
[2017-12-29] MEDS: ASPirin 81 mg TAB PO SCH (10:57)
[2017-12-29] MEDS: TICAGRELOR 90 MG TAB PO SCH (10:59)
[2017-12-29] MEDS ORDERED: AMLO2.5T6 PO (11:55)
[2017-12-29] MEDS ORDERED: FURO40TA4 PO (11:55)
[2017-12-29 13:00] VITALS: BP 103/70
== END 2017-12-29 17:23 | disposition home health service (06) | DRG 280 ==
LOC: EDBD 14:05 → ER 14:05 → EDUNIT# 14:05 → TELE 14:06 → TELE-EAST 17:25
PROVIDERS: ADMIT Internal Medicine; ATTEND Family Medicine
DX: I21.4 Non-ST elevation (NSTEMI) myocardial infarction (principal); I50.43 Acute on chronic combined systolic (congestive) and diastolic (congestive) heart failure; I13.0 Hypertensive heart and chronic kidney disease with heart failure and stage 1 through stage 4 chronic kidney disease, or unspecified chronic kidney disease; E87.1 Hypo-osmolality and hyponatremia; N17.9 Acute kidney failure, unspecified; N18.4 Chronic kidney disease, stage 4 (severe); I42.9 Cardiomyopathy, unspecified; I25.10 Atherosclerotic heart disease of native coronary artery without angina pectoris; E11.22 Type 2 diabetes mellitus with diabetic chronic kidney disease; I48.91 Unspecified atrial fibrillation; E87.8 Other disorders of electrolyte and fluid balance, not elsewhere classified; D63.1 Anemia in chronic kidney disease; E03.9 Hypothyroidism, unspecified; E11.21 Type 2 diabetes mellitus with diabetic nephropathy; E11.649 Type 2 diabetes mellitus with hypoglycemia without coma; E11.65 Type 2 diabetes mellitus with hyperglycemia; E78.00 Pure hypercholesterolemia, unspecified; I34.0 Nonrheumatic mitral (valve) insufficiency; J44.9 Chronic obstructive pulmonary disease, unspecified; Z74.01 Bed confinement status; Z90.49 Acquired absence of other specified parts of digestive tract; I25.2 Old myocardial infarction; Z95.5 Presence of coronary angioplasty implant and graft; Z98.49 Cataract extraction status, unspecified eye; Z79.899 Other long term (current) drug therapy; Z88.8 Allergy status to other drugs, medicaments and biological substances; Z79.82 Long term (current) use of aspirin
CPT/HCPCS: 36415; 71045; 76700; 78452; 80053; 80061; 81001; 82550; 82570; 82962; 83036; 83735; 83880; 84156; 84443; 84484; 85025; 85610; 85730; 86704; 86706; 86708; 86803; 87340; 93005; 93017; 93306; 94761; 96374; 99291; J0153; J1815